=== PATIENT | female | born 1945 | race Caucasian/White ===

== ENCOUNTER 2020-08-30 07:06 | Day surgery (SDC) | payer OTHER, BC ==
[2020-08-25 12:37] LABS: Potassium 3.9 mmol/L (3.5-5.1)
[2020-08-25 12:38] LABS: Absolute Lymphocytes (CBC) 1.6 K/uL (0.7-4.9); Basophils % 0.8 % (0-1.3); Hematocrit 41.1 % (36.0-45.0); Lymphocytes % 24.1 % (15.3-44.8); MPV 8.6 fL (7.6-11.3); RBC Red Blood Cell Count 4.52 M/uL (3.86-4.86)
--- NOTE | 2020-08-25 13:11 | RAD REPORT ---
EXAM DESCRIPTION: RAD - Chest Pa And Lat (2 Views) - 08/25/2020 12:27 pm CLINICAL HISTORY: Pre-op, pending hernia repair COMPARISON: None TECHNIQUE: Frontal and lateral views of the chest were obtained. FINDINGS: The lungs are clear of mass or acute infiltrate. Patient has a mildly prominent interstiti al pattern believed to be chronic. No failure or volume overload. Trachea is midline. Sternotomy wires are in place. Loop recorder overlies the medial upper left abdom en. Heart size is normal and central vasculature is within normal limits. No pleural effusion or p neumothorax seen. No acute bony finding noted. No aortic abnormality. IMPRESSION: No acute cardiopulmonary process.
--- OUTSIDE RECORDS SUMMARY | 2020-08-30 07:10 | XMS REPORT | Clinical Summary ---
:1945 Author Organization [facility] Address [address] [place] [address] Care Team Providers Name Role Phone Cristina Womack MD Primary Care Provider Allergies Active Allergy Reactions Severity Noted Date Comments Adhesive Tape-Silicones 03/15/2018 Use paper tape only Medications Medication Sig Dispensed Refills Start Date End Date Status cholecalciferol, Take 2,000 0 Ac tive vitamin D3, Units by (VITAMIN D3) 2,000 mouth daily. unit capsule capsule warfarin One and one 150 tablet 3 06/25/2019 Active (COUMADIN) 5 MG half tablet tablet daily or as directed by MD office. furosemide (LASIX) TAKE ONE 90 tablet 2 06/23/2020 Active 40 mg tablet TABLET BY MOUTH DAILY pravastatin TAKE 1 TABLET 90 tablet 2 06/23/2020 Act elie (PRAVACHOL) 80 MG BY MOUTH tablet NIGHTLY Klor-Con M20 20 TAKE ONE 90 tablet 2 06/23/2020 Act elie mEq CR tablet TABLET BY MOUTH DAILY sotaloL (BETAPACE) Take 80 mg by 0 Active 80 MG tablet mouth 2 (two) times a day. 1/2 tablet twice daily levothyroxine Take 1/2 tbl 45 tablet 1 07/10/2020 Ac tive (SYNTHROID) 75 mcg daily tabletIndications: Hypothyroidism, unspecified type warfarin Take 1 tablet 30 tablet 1 10/23/2018 Disco ntinued (COUMADIN) 5 MG (5 mg total) 0 ( Med List tablet by mouth Cleanup) daily for 30 days. Take 1 tablet (5mg) by mouth daily for 30 days. sotalol (BETAPACE) Take 1 tablet 180 tablet 3 06/15/201906/14 80 MG tablet (80 mg total) 0 by mouth 2 (two) times a day. Additional Information Patient taking differently: 80 mg oral 2 times daily, 1/2 tab am and 1/2 tab pm, Reported on 09/21/2019 potassium chloride Take 1 tablet 90 tablet 3 06/15/20192019 (K-DUR) 20 MEQ CR (20 mEq tabletIndications: total) by Abnormal stress test, mouth daily. Coronary artery disease involving [place] coronary artery of [place] heart without angina pectoris, SOB (shortness of breath) furosemide (LASIX) 40 Take 1 tablet 90 tablet 3 06/15/201911/2019 mg tabletIndications: (40 mg total) Abnormal stress test, by mouth Coronary artery daily. disease involving [place] coronary artery of [place] heart without angina pectoris, SOB (shortness of breath) pravastatin Take 1 tablet 90 tablet 3 06/15/2019 06/14/2020 Ex pired (PRAVACHOL) 80 MG (80 mg total) tabletIndications: by mouth Abnormal stress test, nightly. Coronary artery disease involving [place] coronary artery of [place] heart without angina pectoris, SOB (shortness of breath) acetaminophen-codeine Take 1 tablet 90 tablet 0 06/16/201907/2019 Discontinued (TYLENOL WITH CODEINE by mouth (Reorder) #3) 300-30 mg per every 6 (six) tabletIndications: hours as chronic pain needed for moderate pain for up to 30 days .chronic pain. albuterol (PROAIR Inhale 1 puff 18 g 1 06/16/2019 019 Discontinued HFA,PROVENTIL every 6 (six) (T herapy HFA,VENTOLIN HFA) 90 hours as completed) mcg/actuation needed for inhalerIndications: shortness of Cough breath. levothyroxine Take 1 tablet 90 tablet 3 06/17/2019 07/10/2020 Discontinued (SYNTHROID, LEVOXYL) (25 mcg 25 mcg total) by tabletIndications: mouth daily. Hypothyroidism, unspecified type acetaminophen-codeine Take 1 tablet 90 tablet 1 09/21/201909/2020 Discontinued (TYLENOL WITH CODEINE by mouth (Reorder) #3) 300-30 mg per every 6 (six) tabletIndications: hours as chronic pain needed for moderate pain for up to 30 days .chronic pain. acetaminophen-codeine Take 1 tablet 90 tablet 1 02/22/202008/2020 (TYLENOL WITH CODEINE by mouth #3) 300-30 mg per every 6 (six) tabletIndications: hours as chronic pain needed for moderate pain for up to 30 days .chronic pain. warfarin (COUMADIN) 5 One and one 200 tablet 3 06/01/20202 02/2020 Discontinued MG tablet half tab (Duplicate daily or as order) directed by MD office amoxicillin-pot Take 1 tablet 20 tablet 0 07/10/2020 0 clavulanate by mouth 2 (AUGMENTIN) 875-125 mg (two) times a per tabletIndications: day for 10 UTI symptoms days. Active Problems Problem Noted Date Umbilical hernia without obstruction and without gangr dion 02/22/2020 Medication management contract agreement 02/22/2020 Gastroesophageal reflux disease 09/21/2019 HLD (hyperlipidemia) 06/16/2019 Hypothyroidism 06/16/2019 Obesity, unspecified obesity severity, unspecified obe sity type 06/16/2019 Osteoarthritis, generalized 06/16/2019 History of cardioversion (06/19/2018) 06/15/2019 Status post placement of implantable loop recorder (MD Lomeli, 06/05/2018) 06/17/2018 Disorder of carotid artery 03/13/2018 Persistent atrial fibrillation 03/13/2018 CAD in [place] artery 02/10/2018 History of coronary artery bypass graft 02/12/2017 Essential hypertension 02/12/2017 Prediabetes 07/10/2016 Overview: Lab Results Component Value Date HGBA1C 5.7 (H) 07/07/2020 Encounters Date Type Specialty Care Team Description 08/23/2020 Telephone Cardiology Ki Tucker MA Cardiac cleara nce 08/21/2020 Telephone Family Medicine Cristina Womack MD 08/21/2020 Telephone Cardiology Jostin Anticoagulation QUENTIN [place] 08/14/2020 Telephone Cardiology Jostin Anticoagulation [place] 07/27/2020 Telephone Cardiology Jostin Anticoagulation [place] 07/13/2020 Telephone Cardiology Frankel, Anticoagulation Bonita, INTEGRATED MARKETING MANAGER 07/10/2020 Orders Only Family Medicine Vu, Hypothyroidi sm, unspecified type (Primary Dx); MD Cristina UTI symptoms 07/07/2020 Lab Lab Vu, Essential hyper tension; MD Cristina Persistent atri al fibrillation; Prediabetes; Hyperlipidemia, unspecified hyperlipidemia type; Hypothyroidism, unspecified type 07/07/2020 Office Visit Family Medicine Vu, Essential hy pertension (Primary Dx); MD Cristina CAD in [place] a rtery; Persistent atri al fibrillation; Disorder of car otid artery (HCC); Hyperlipidemia, unspecified hyperlipidemia type; Prediabetes; Hypothyroidism, unspecified type; Osteoarthritis, generalized; Umbilical herni a without obstruction and without gangrene; Grieving 07/07/2020 Travel 06/29/2020 Telephone Cardiology Frankel, Anticoagulation Bonita, INTEGRATED MARKETING MANAGER 06/26/2020 Travel 06/23/2020 Refill Cardiology Logan Quigley Refill MD Ameena 06/16/2020 Telephone Cardiology Penny Chau Anticoagulatio sam Gilbert, MA 06/01/2020 Orders Only Cardiology Frankel, Bonita, INTEGRATED MARKETING MANAGER 06/01/2020 Telephone Cardiology Frankel, Anticoagulation Bonita, INTEGRATED MARKETING MANAGER 05/18/2020 Telephone Cardiology Frankel, Anticoagulation Bonita, INTEGRATED MARKETING MANAGER 05/02/2020 Telephone Cardiology Frankel, Anticoagulation Bonita, INTEGRATED MARKETING MANAGER 04/26/2020 Hospital Encounter Procedural Camilo, Scientologist Atrial fi brillation, Cardiology MD Kenji PhD unspecified typ e (HCC) 04/17/2020 Telephone Cardiology Frankel, Anticoagulation Bonita, INTEGRATED MARKETING MANAGER 03/27/2020 Hospital Encounter Procedural Camilo, Scientologist Atrial fi brillation, Cardiology MD Kenji PhD unspecified typ e (HCC) 03/27/2020 Telephone Cardiology Frankel, Anticoagulation Bonita, INTEGRATED MARKETING MANAGER 03/10/2020 Telephone Cardiology Frankel, Anticoagulation Bonita, INTEGRATED MARKETING MANAGER 02/26/2020 Hospital Encounter Procedural Camilo, Scientologist Atrial fi brillation, Cardiology MD Kenji PhD unspecified typ e (HCC) 02/24/2020 Telephone Consult Cardiology Camilo, Scientologist Status pos t placement of implantable loop recorder (MDT, 06/05/2018) (Primary Dx); MD Kenji PhD Persistent atri al fibrillation 02/24/2020 Telephone Cardiology Frankel, Anticoagulation Bonita, INTEGRATED MARKETING MANAGER 02/22/2020 Office Visit Family Medicine Vu, Hypothyroidi sm, unspecified type (Primary Dx); MD Cristina Hyperlipidemia, unspecified hyperlipidemia type; Prediabetes; Essential hyper tension; Congestive hear t failure, unspecified HF chronicity, unspecified heart failure type ([facility]); CAD, multiple v essel; Persistent atri al fibrillation; Disorder of car otid artery ([facility]); Gastroesophagea l reflux disease, esophagitis presence not specified; Obesity, unspec ified obesity severity, unspecified obesity type; Umbilical herni a without obstruction and without gangrene; Osteoarthritis, generalized; Medication milla gement contract agreement 02/22/2020 Travel 02/16/2020 Telephone Cardiology Frankel, Anticoagulation Bonita, INTEGRATED MARKETING MANAGER 02/10/2020 Telephone Cardiology Frankel, Anticoagulation Bonita, INTEGRATED MARKETING MANAGER 01/31/2020 Travel 01/27/2020 Telephone Cardiology Lamar Khan MA 01/24/2020 Telephone Cardiology Frankel, Anticoagulation Bonita, INTEGRATED MARKETING MANAGER 01/06/2020 Telephone Cardiology Frankel, Anticoagulation Bonita, INTEGRATED MARKETING MANAGER 12/28/2019 Hospital Encounter Procedural Camilo, Scientologist Atrial fi brillation, Cardiology MD Kenji PhD unspecified typ e ([facility]) 12/24/2019 Telephone Cardiology Frankel, Anticoagulation Bonita, INTEGRATED MARKETING MANAGER 12/09/2019 Telephone Cardiology Frankel, Anticoagulation Bonita, INTEGRATED MARKETING MANAGER 11/26/2019 Telephone Cardiology Frankel, Anticoagulation Bonita, INTEGRATED MARKETING MANAGER 11/11/2019 Telephone Cardiology Frankel, Anticoagulation Bonita, INTEGRATED MARKETING MANAGER 10/29/2019 Hospital Encounter Procedural Camilo, Scientologist Atrial fi brillation, Ulises Phillip MD PhD unspecified typ e ([facility]) 10/28/2019 Hospital Encounter Procedural Camilo, Scientologist AF (atria l fibrillation) Cardiology MD Kenji PhD ([facility]) 10/27/2019 Telephone Cardiology Frankel, Anticoagulation Bonita, INTEGRATED MARKETING MANAGER 10/14/2019 Telephone Cardiology Frankel, Anticoagulation Bonita, INTEGRATED MARKETING MANAGER 09/28/2019 Hospital Encounter Procedural Camilo, Scientologist AF (atria l fibrillation) Ulises Phillip MD PhD ([facility]) 09/27/2019 Telephone Cardiology Frankel, Anticoagulation Bonita, INTEGRATED MARKETING MANAGER 09/24/2019 Orders Only Scott Gonzalez MD PhD 09/21/2019 [facility] Hypothyroidi sm, unspecified type (Primary Dx); MD Cristina Hyperlipidemia, unspecified hyperlipidemia type; Prediabetes; Osteoarthritis, generalized; Essential hyper tension; CAD in [place] a rtery; Persistent atri al fibrillation 09/21/2019 Office Visit Cardiology Scott Page Persistent atri al fibrillation (Primary Dx); MD Kenji PhD Status post [place] cement of implantable loop recorder (MDT, 06/05/2018); History of card ioversion (06/19/2018) 09/13/2019 Telephone Cardiology Jareth Frankel INTEGRATED MARKETING MANAGER 08/30/2019 Hospital Encounter Procedural Scott Page Atrial fi brillation, Cardiology MD Kenji PhD unspecified typ e (HCC) after 08/30/2019 Surgical History Surgery Date Site/Laterality Comments CARDIAC ELECTROPHYSIOLOGY 03/18/2018 N/A Proced ure: Ep PROCEDURE cardioversion w felipa; Surgeon: Paco Doran MD; L ocation: [facility] [employer] Location; Servi ce: Cardiovascular; Laterality: N/A; TOTAL HIP ARTHROPLASTY 10/13/2004 - Bilateral 10/12/2005 CARDIAC ELECTROPHYSIOLOGY 06/05/2018 N/A Proced ure: Ep loop PROCEDURE recorder inserti on; Surgeon: Scott Page MD PhD; Locatio n: [facility] [employer] Location; Servi ce: Cardiovascular; Laterality: N/A; loop implant Medical devices from this surgery are in the Implants section . CARDIOVERSION CARDIAC ELECTROPHYSIOLOGY 06/19/2018 N/A Proced ure: Ep PROCEDURE cardioversion; Surgeon: Odin Watson PhD; Location: [facility] [employer] [facility] Loc ation; Service: Cardiov ascular; Laterality: N/A ; CARDIAC CATHETERIZATION 07/29/2018 N/A Procedur e: Cv left heart cath; Surgeon: Logan Quigley MD; Lo cation: [facility] [employer] Location; Servi ce: Cardiology; Lat erality: N/A; left heart cath poss pci CARDIAC CATHETERIZATION 07/29/2018 N/A Procedur e: Cv left heart cath w lv gram c ors; Surgeon: Logan Quigley MD; Location: [facility] [employer] Location; Servi ce: Cardiology; Lat erality: N/A; CARDIAC CATHETERIZATION 08/13/2018 N/A Procedur e: Cv left heart cath; Surgeon: Logan Quigley MD; Lo cation: [facility] [employer] Location; Servi ce: Cardiology; Lat erality: N/A; Medical devices from this surgery are in the Implants section . CARDIAC CATHETERIZATION 08/13/2018 N/A Procedur e: Cv intracoronary st ent placement w travis oplasty single major art dylan or branch; Surgeon : Logan Quigley MD; Lo cation: [facility] [employer] [facility] [facility]; Servi ce: Cardiology; Lat erality: N/A; RCA-SHEET MANAGER Medical devices from this surgery are in the Implants section . CARDIAC CATHETERIZATION 08/13/2018 N/A Procedur e: Cv Cath Aborted Pci Proc edure; Surgeon: Logan Quigley MD; Location: [facility] [employer] Location; Servi ce: Cardiology; Lat erality: N/A; Medical devices from this surgery are in the Implants section . CARDIAC CATHETERIZATION 10/22/2018 N/A Procedur e: Pci percutaneous cardiac angioplasty PCI TO RCA SHEET MANAGER; Surgeon: Logan Quigley MD; Location: [facility] [employer] [facility] [facility]; Service: Cardiology; Laterality: N/A; PCI TO RCA SHEET MANAGER 2 SATYA Medical devices from this surgery are in the Implants section. CORONARY ARTERY BYPASS GRAFT 10/13/2004 - 10/12/2005 Medical History Medical History Date Comments Coronary artery disease Peripheral vascular disease (HCC) Hypertension Hyperlipidemia Arrhythmia Afib Family History Medical History Relation Name Comments No Known Problems Father No Known Problems Mother Relation Name Status Comments Father Mother Social History Tobacco Use Types Packs/Day Years Used Date Former Smoker Cigarettes Smokeless Tobacco: Never Used Tobacco Cessation: Counseling Given: Yes Alcohol Use Drinks/Week oz/Week Comments No Sex Assigned at Date Recorded Not on file Obstetrics History Grav Para Term Pre Abrt (TAB) (SAB) (Ect) Mult Lvng Comments 2 2 Date Outcome GA Total Labor/2nd/3rd Weight Sex Delivery Anes PTL Elissa A 1 A5 Name Clin Labor Para Para Last Filed Vital Signs Vital Sign Reading Time Taken Comments Blood Pressure 173/117 07/07/2020 11:51 AM CDT Pulse 63 07/07/2020 11:51 AM CDT Temperature 36.7 C (98 F) 07/07/2020 11:51 AM CDT Respiratory Rate 16 07/07/2020 11:51 AM CDT Oxygen Saturation 95% 07/07/2020 11:51 AM CDT Inhaled Oxygen Concentration - - Weight 74.6 kg (164 lb 6.4 oz) 07/07/2020 11:51 AM CDT Height 152.4 cm (5') 07/07/2020 11:51 AM CDT Body Mass Index 32.11 07/07/2020 11:51 AM CDT Plan of Treatment Date Type Specialty Care Team Description 01/03/2021 Office Visit Family Medicine Cristina Womack MD [address] [facility] [address] [place], [place] [address] Health Maintenance Due Date Last Done Comments 65+ PNEUMOCOCCAL VACCINE (1 of 1 06/16/2024 Postponed from 2009 - PPSV23) (Patient Refused ) INFLUENZA VACCINE 06/16/2024 Postponed from 05/13/2020 (Patient Refused ) SHINGLES VACCINES (#1) 06/16/2024 Postponed from 1994 (Patient Refused ) COLONOSCOPY SCREENING Discontinued DXA SCAN Discontinued Implants Implanted Type Area Gate Services Supervisor Device Shelf Model / Identifier Expiration Serial / Date Lot System Reveal Linq W/Monitors - [id number] Cardiac N/A: MEDTRON IC 03/09/2019 [id number] / Implanted: 06/05/2018 at [facility] (Quantity not on file) Pac emakers and N/A CARDIAC RHYTHM / Related Products DISEASE MGMT [id number] Microcatheter Deirdre Corsair 6f X 135 Cm - [id number] Cardiovascul ar N/A: [facility] [id number] / Implanted: 08/13/2018 at [facility] (Quantity not on file) Implants N/A / Device Stingray Lp Freelance Digital Project Manager 3.2fr 135cm - [id number] Cardiovascular N/A: [facility] [id number] / Implanted: 08/13/2018 at [facility] (Quantity not on file) Imp lants N/A INTERVENTIONAL / CARDIOLOGY Device Vasclr Clsr Vasoactive Intstnl Peptd 6fr Angio- Seal - [id number] Cardiovascular N/A: 06/12/2019 [id number] / Implanted: 08/13/2018 at [facility] (Quantity not on file) Implants N/A / [id number] Device Vasclr Clsr Vasoactive Intstnl Peptd 8fr Angio- Seal - [id number] Cardiovascular N/A: 04/11/2019 [id number] / Implanted: 08/13/2018 at [facility] (Quantity not on file) Implants N/A / [id number] Microcatheter Deirdre Corsair 6f X 135 Cm - [id number] Cardiovascul ar N/A: [facility] [id number] / Implanted: 10/22/2018 at [facility] (Quantity not on file) Implants N/A / Stent Coronary Syst Synergy (Mr) 3.00mm X 38mm - [id number] Coronary Stents N/A: [facility] 07/26/2020 [id number] / Implanted: 10/22/2018 at [facility] (Quantity not on file) N/A INTERVENTIONAL / CARDIOLOGY [id number] Stent Catheter Synergy (Otw) 3.00mm X 38mm - [id number] Coronary Stents N/A: [facility] [id number] / Implanted: 10/22/2018 at [facility] (Quantity not on file) N/A INTERVENTIONAL / CARDIOLOGY System Clsr Sut Meditd 6fr Perclose Proglide - [id number] Surgic al N/A: [facility] 07/12/2020 [id number] / Implanted: 10/22/2018 at [facility] (Quantity not on file) Imp lants; N/A DEVICES / Expanders; [id number] Extenders; Surgical Wires Procedures Procedure Name Priority Date/Time Associated Diagnosis Comme nts PROTHROMBIN TIME WITH Routine 08/14/2020 Result s for this INR procedure are i n the results section. PROTHROMBIN TIME WITH Routine 07/27/2020 Result s for this INR procedure are i n the results section. PROTHROMBIN TIME WITH Routine 07/13/2020 Result s for this INR procedure are i n the results section. MICROSCOPIC Routine 07/07/2020 12:41 Results for this EXAMINATION PM CDT procedure are i n the results section. URINALYSIS, AUTOMATED Routine 07/07/2020 12:41 Essential hyper tension Results for this WITH MICROSCOPY PM CDT procedure ar e in the results section. THYROID STIMULATING Routine 07/07/2020 12:41 Hypothyroidism, R esults for this HORMONE PM CDT unspecified type procedure a re in the results section. T4, FREE Routine 07/07/2020 12:41 Hypothyroidism, Results for this PM CDT unspecified type procedure a re in the results section. MICROALBUMIN / Routine 07/07/2020 12:41 Essential hypertension Results for this CREATININE URINE PM CDT procedure a re in RATIO the results section. LIPID PANEL Routine 07/07/2020 12:41 Hyperlipidemia, Results for this PM CDT unspecified procedure are i n hyperlipidemia type the resu lts section. HEPATITIS C ANTIBODY Routine 07/07/2020 12:41 Hyperlipidemia, Results for this PM CDT unspecified procedure are i n hyperlipidemia type the resu lts section. HEPATIC FUNCTION Routine 07/07/2020 12:41 Hyperlipidemia, Resu lts for this PANEL PM CDT unspecified procedure are i n hyperlipidemia type the resu lts section. HEMOGLOBIN A1C Routine 07/07/2020 12:41 Prediabetes Results f or this PM CDT procedure are i n the results section. CBC WITH PLATELET AND Routine 07/07/2020 12:41 Persistent atri al Results for this DIFFERENTIAL PM CDT fibrillation procedure are i n the results section. BASIC METABOLIC PANEL Routine 07/07/2020 12:41 Essential hyper tension Results for this PM CDT procedure are i n the results section. PROTHROMBIN TIME WITH Routine 06/29/2020 Result s for this INR procedure are i n the results section. PROTHROMBIN TIME WITH Routine 06/16/2020 Result s for this INR procedure are i n the results section. PROTHROMBIN TIME WITH Routine 06/01/2020 Result s for this INR procedure are i n the results section. PROTHROMBIN TIME WITH Routine 05/18/2020 Result s for this INR procedure are i n the results section. PROTHROMBIN TIME WITH Routine 05/01/2020 Result s for this INR procedure are i n the results section. PROTHROMBIN TIME WITH Routine 04/17/2020 Result s for this INR procedure are i n the results section. PROTHROMBIN TIME WITH Routine 03/27/2020 Result s for this INR procedure are i n the results section. PROTHROMBIN TIME WITH Routine 03/10/2020 Result s for this INR procedure are i n the results section. PROTHROMBIN TIME WITH Routine 02/24/2020 Result s for this INR procedure are i n the results section. PROTHROMBIN TIME WITH Routine 02/16/2020 Result s for this INR procedure are i n the results section. PROTHROMBIN TIME WITH Routine 02/10/2020 Result s for this INR procedure are i n the results section. PROTHROMBIN TIME WITH Routine 01/24/2020 Result s for this INR procedure are i n the results section. PROTHROMBIN TIME WITH Routine 01/06/2020 Result s for this INR procedure are i n the results section. PROTHROMBIN TIME WITH Routine 12/24/2019 Result s for this INR procedure are i n the results section. PROTHROMBIN TIME WITH Routine 12/09/2019 Result s for this INR procedure are i n the results section. PROTHROMBIN TIME WITH Routine 12/09/2019 Result s for this INR procedure are i n the results section. PROTHROMBIN TIME WITH Routine 11/26/2019 Result s for this INR procedure are i n the results section. PROTHROMBIN TIME WITH Routine 11/11/2019 Result s for this INR procedure are i n the results section. PROTHROMBIN TIME WITH Routine 10/27/2019 Result s for this INR procedure are i n the results section. PROTHROMBIN TIME WITH Routine 09/27/2019 Result s for this INR procedure are i n the results section. ECG 12-LEAD Routine 09/21/2019 2:03 Persistent atrial Result s for this PM DIE SIZER fibrillation procedure are in Status post placement the re sults of implantable loop section. recorder (MDT, 06/05/2018) History of cardioversion (06/19/2018) CV PACEMAKER DEFIB Routine 09/21/2019 ILR INTERROGATION PROTHROMBIN TIME WITH Routine 09/13/2019 Result s for this INR procedure are i n the results section. after 08/30/2019 Results Prothrombin time with INR (08/14/2020)Only the most recent of24 resultswithin the time period is included. Pathologist Sig nature INR 3.10 [facility] Specimen Blood Performing Organization Address City/State/ZIP Code Phon e Number [facility] Microscopic Examination (07/07/2020 12:41 PM CDT) Pathologist Sig nature WBC, UA 11-30 (A) 0 - 5 /hpf [facility] RBC, UA 3-10 (A) 0 - 2 /hpf [facility] Epithelial cells (non >10 (A) 0 - 10 /hpf [facility] renal) Mucus, UA Present Not Estab. [facility] Bacteria, UA Many (A) None seen/Few [facility] Specimen Narrative Performed At Performed at: 01 - [facility] [address] [place], [place] [id number] 143 Contracting Officer: Ja Ramírez MD, Phone: [phone] Performing Organization Address [facility] Phon e Number [facility] Hepatitis C antibody (07/07/2020 12:41 PM CDT) [facility] Hepatitis C Ab <0.1 0.0 - 0.9 s/co [facility] Comment: ratio Neg ative: < 0.8 Indetermina te: 0.8 - 0.9 Pos itive: > 0.9 The CDC recommends that a positive HCV antibody resul t be followed up with a HCV Nucleic Acid Amplification test (669705). Specimen Blood Narrative Performed At Performed at: [address] [place] [address] [facility] [address] [place] [address] [id number] Contracting Officer: Ja Ramírez MD, Phone: [phone] Performing Organization Address [facility] Phon e Number [facility] Microalbumin / creatinine urine ratio (07/07/2020 12:41 PM CDT) [facility] Creatinine, urine, 198.5 Not Estab. [facility] random mg/dL Albumin, urine 23.4 Not Estab. [facility] ug/mL Microalbumin/creati 12 0 - 29 mg/g [facility] nine ratio Comment: creat Normal: 0 - 29 Moderately increased : 30 - 300 Severely increased: >300 Please note reference interval change Specimen Blood Narrative Performed At Performed at: [address] [place] [address] [facility] [address] [place] [address] [id number] Contracting Officer: Ja Ramírez MD, Phone: [phone] Performing Organization Address [facility] Phon e Number [facility] Urinalysis, automated with microscopy (07/07/2020 12:41 PM CDT) [facility] Specific gravity, 1.024 1.005 - 1.030 [facility] urine pH, urine 5.5 5.0 - 7.5 [facility] Color, UA Yellow Yellow [facility] Appearance Cloudy (A) Clear [facility] WBC esterase, urine 2+ (A) Negative [facility] Protein, UA Trace Negative/Trace [facility] Glucose, urine Negative Negative [facility] Ketones, UA Negative Negative [facility] Occult blood, urine Trace (A) Negative [facility] Bilirubin, UA Negative Negative [facility] Urobilinogen, UA 0.2 0.2 - 1.0 mg/dL [facility] Nitrite, UA Negative Negative [facility] Microscopic See below:Comment: [facility] examination Microscopic was indicated and was performed. Specimen Blood Narrative Performed At Performed at: - [facility] [address] [place] [address] [id number] Contracting Officer: Ja Ramírez MD, Phone: [phone] Performing Organization Address City/State/ZIP Code Phon e Number [facility] CBC with platelet and differential (07/07/2020 12:41 PM CDT) Pathologist Sig nature WBC 6.1 3.4 - 10.8 x10E3/uL [facility] RBC 4.19 3.77 - 5.28 x10E6/uL [facility] HGB 13.5 11.1 - 15.9 g/dL [facility] HCT 39.1 34.0 - 46.6 % [facility] MCV 93 79 - 97 fL [facility] MCH 32.2 26.6 - 33.0 pg [facility] MCHC 34.5 31.5 - 35.7 g/dL [facility] RDW 12.3 11.7 - 15.4 % [facility] Platelet count 286 150 - 450 x10E3/uL [facility] Neutrophils 65 Not Estab. % [facility] Lymphocytes 22 Not Estab. % [facility] Monocytes 9 Not Estab. % [facility] Eosinophils 3 Not Estab. % [facility] Basophils 1 Not Estab. % [facility] Neutrophils, absolute 3.9 1.4 - 7.0 x10E3/uL [facility] Lymphocytes, absolute 1.4 0.7 - 3.1 x10E3/uL [facility] Monocytes, absolute 0.6 0.1 - 0.9 x10E3/uL [facility] Eosinophils, absolute 0.2 0.0 - 0.4 x10E3/uL [facility] Basophils, absolute 0.0 0.0 - 0.2 x10E3/uL [facility] Immature granulocytes 0 Not Estab. % [facility] Immature grans (abs) 0.0 0.0 - 0.1 x10E3/uL [facility] Specimen Blood Narrative Performed At Performed at: - [facility] [place], [place] [address] 091 Contracting Officer: Ja Ramírez MD, Phone: [phone] Performing Organization Address [facility] Phon e Number [facility] Thyroid stimulating hormone (07/07/2020 12:41 PM CDT) Pathologist Sig nature TSH 5.930 (H) 0.450 - 4.500 uIU/mL [facility] Specimen Blood Narrative Performed At Performed at: [address] [place] [address] [id number] Contracting Officer: Ja Ramírez MD, Phone: [phone] Performing Organization Address [facility] Phon e Number [facility] T4, free (07/07/2020 12:41 PM CDT) Pathologist Sig nature T4, free 1.22 0.82 - 1.77 ng/dL [facility] Specimen Blood Narrative Performed At Performed at: [address] [place] [address] [id number] Contracting Officer: Ja Ramírez MD, Phone: [phone] Performing Organization Address [facility] Phon e Number [facility] Hemoglobin A1c (07/07/2020 12:41 PM CDT) Pathologist Sig [facility] Hemoglobin A1C 5.7 (H) 4.8 - 5.6 % [facility] Comment: Prediabetes: 5.7 - 6.4 Diabetes: >6.4 Glycemic control for adults with diabetes : <7.0 Specimen Blood Narrative Performed At Performed at: [address] [place] [address] [id number] Contracting Officer: Ja Ramírez MD, Phone: [phone] Performing Organization Address [facility] Phon e Number [facility] Hepatic function panel (07/07/2020 12:41 PM CDT) Pathologist Sig nature Protein 7.3 6.0 - 8.5 g/dL [facility] Albumin, S 4.5 3.7 - 4.7 g/dL [facility] Total bilirubin 0.6 0.0 - 1.2 mg/dL [facility] Bilirubin direct 0.12 0.00 - 0.40 mg/dL [facility] Alkaline phosphatase 82 39 - 117 IU/L [facility] AST 17 0 - 40 IU/L [facility] ALT 12 0 - 32 IU/L [facility] Specimen Blood Narrative Performed At Performed at: [facility] [address] [place] [address] [id number] Contracting Officer: Ja Ramírez MD, Phone: [phone] Performing Organization Address [facility] Phon e Number [facility] Lipid panel (07/07/2020 12:41 PM CDT) Pathologist Sig nature Cholesterol 195 100 - 199 mg/dL [facility] Triglycerides 93 0 - 149 mg/dL [facility] HDL cholesterol 64 >39 mg/dL [facility] VLDL cholesterol marlene 17 5 - 40 mg/dL [facility] LDL Chol Calc (NIH) 114 (H) 0 - 99 mg/dL [facility] Non-HDL cholesterol 131 (H) 0 - 129 mg/dL [facility] Specimen Blood Narrative Performed At Performed at: [address] [id number] Contracting Officer: Ja Ramírez MD, Phone: [phone] Performing Organization Address [facility] Phon e Number [facility] Basic metabolic panel (07/07/2020 12:41 PM CDT) Pathologist Sig nature Glucose 98 65 - 99 mg/dL [facility] BUN 12 8 - 27 mg/dL [facility] Creatinine 0.65 0.57 - 1.00 mg/dL [facility] EGFR Non-Afr. Yemeni 87 >59 mL/min/1.73 [facility] EGFR 100 >59 mL/min/1.73 [facility] BUN/creatinine ratio 18 12 - 28 [facility] Sodium 138 134 - 144 mmol/L [facility] Potassium 4.4 3.5 - 5.2 mmol/L [facility] Chloride 102 96 - 106 mmol/L [facility] CO2 23 20 - 29 mmol/L [facility] Calcium 9.4 8.7 - 10.3 mg/dL [facility] Specimen Blood Narrative Performed At Performed at: [address] [place] [address] [id number] [phone] Contracting Officer: Ja Ramírez MD, Phone: [phone] Performing Organization Address [facility] Phon e Number [facility] ECG 12 lead (09/21/2019 2:03 PM DIE SIZER) Pathologist Sig nature Ventricular rate 54 [facility] Atrial rate 54 [facility] SD interval 154 [facility] QRSD interval 82 [facility] QT interval 446 [facility] QTC interval 422 [facility] P axis 1 37 [facility] QRS axis 1 -17 [facility] T wave axis 46 [facility] EKG impression Sinus bradycardia-Low [facility] voltage QRS-Borderline ECG-In automated comparison with ECG of 01-JUL-2019 11:01,-No significant change was found- Specimen Narrative Performed At This result has an attachment that is no t available. Performing Organization Address City/State/ZIP Code Phon e Number [facility] MUSE [address] [place] [address] CV pacemaker defib or ilr interrogation (09/21/2019) Narrative Performed At This result has an attachment that is no t available. after 08/30/2019 Insurance Payer Benefit Plan / Subscriber ID Effective Dates Phone Addre ss Type Group MEDICARE MEDICARE PART A [id number] 2009-Present [facility] [place] [place] AND B BCBS [employer] [id number] 2016-Present PPO Advance Directives For more information, please contact: [phone] Type Date Recorded Patient Senior Payroll Manager Explanati on Advance Directives, Living Will and Medical Power of Manager Commodities
--- OUTSIDE RECORDS SUMMARY | 2020-08-30 07:11 | XMS REPORT | Continuity of Care Document ---
:1945 Author Organization [facility] t Address [address] [place] [address] Dr. [address]. [address] [place] [address] Care Team Providers Name Role Phone Vu COLLADO Primary Care Physician Caitlin SCHULTZ Attending Clinician Unavailable Vu COLLADO Attending Clinician Jostin SAAVEDRA Attending Clinician Unavailable Dann COLLADO, R. Attending Clinician Isac SCHULTZ, A Attending Clinician Unavailable Camilo COLLADO PhD, S. Attending Clinician Bill SCHULTZ Attending Clinician Unavailable Payers Payer Name Policy Type Policy Effective Date Expiration Date Sour ce Number MEDICAREMEDICARE PART [id number] 2009 Morris Gilbert AND 00:00:00 [employer] [id number] 2008- [place]UE [id number] 2016 [facility]/ 4 00:00:00 Met priest /2015-PresentPPO Problems Condition Condition Condition Status Onset Resolution Last Treating Co mments Source Name Details Category Date Date Treatment Clinician Date Umbilical Umbilical Disease Active Monica ston hernia hernia 02-21 [facility] without without 00:00: st obstructio obstructio 00 n and n and without without gangrene gangrene Medication Medication Disease Active H [facility] management management 02-21 [facility] contract contract 00:00: st agreement agreement 00 Gastroesop Gastroesop Disease Active 2018-10 [facility] hageal hageal 2-10 [facility] reflux reflux 00:00: st disease disease 00 HLD HLD Disease Active [place] (hyperlipi (hyperlipi 06-16 Me thodi demia) demia) 00:00: st 00 Hypothyroi Hypothyroi Disease Active H evanlila dism dism 06-16 Methodi 00:00: st 00 Obesity, Obesity, Disease Active [place] unspecifie unspecifie 06-16 Me thodi d obesity d obesity 00:00: st severity, severity, 00 unspecifie unspecifie d obesity d obesity type type Osteoarthr Osteoarthr Disease Active H [facility] itis, itis, 06-16 [facility] generalize generalize 00:00: st d d 00 History of History of Disease Active H [facility] cardiovers cardiovers 06-15 Me thodi ion ion 00:00: st (06/19/2018) (06/19/2018) 00 Status Status Disease Active [place] post post 06-17 [facility] placement placement 00:00: st of of 00 implantabl implantabl e loop e loop recorder recorder (MDT, (MDT, 06/05/2018) 06/05/2018) Disorder Disorder Disease Active [place] of carotid of carotid 6- Me thodi artery artery 00:00: st 00 Persistent Persistent Disease Active [facility] atrial atrial 6 [facility] fibrillati fibrillati 00:00: st on on 00 CAD in CAD in Disease Active [place] wampanoag wampanoag 02-10 [facility] artery artery 00:00: st 00 History of History of Disease Active H [facility] coronary coronary 02-12 Method i artery artery 00:00: st bypass bypass 00 graft graft Essential Essential Disease Active Monica ston hypertensi hypertensi 5-03 Me thodi on on 00:00: st 00 Prediabete Prediabete Disease Active Overview : [place] ghanshyam s 07-10 Formattin Methodi 00:00: g of this st 00 note might be different from the original. Lab Results Component Value Date HGBA1C 5.7 (H) 0 Allergies, Adverse Reactions, Alerts Allergy Allergy Status Severity Reaction(s) Onset Inactive Treating Comm ents Source Name Type Date Date Clinician Adhesive Propensi Active Use paper Monica ston Tape-Malina ty to 03-15 tape only Meth[facility] di icones adverse 00:00: st reaction 00 s to drug Family History Family Member Diagnosis Comments Start Date Stop Date Source Natural father No Known Problems Monica sharp Roman Catholic Natural mother No Known Problems Monica sharp [employer] Social History Social Habit Start Date Stop Date Quantity Comments Source History of Cigarette Smoker [place] [facility] tobacco use Sex Assigned At [facility] ethodist Tobacco use and 2020-07-07 2020-07-07 Never used [facility] ethodist exposure 00:00:00 00:00:00 Alcohol intake 2020-07-07 2020-07-07 Current [facility] thodist 00:00:00 00:00:00 non-drinker of alcohol (finding) Smoking Status Start Date Stop Date Source Former smoker 2020-07-07 00:00:00 2020-07-07 00:00:00 [place] [facility] Medications Ordered Filled Start Stop Current Ordering Indication Dosage Frequency Signature Comments Components Source Medication Medication Date Date Medication? Clinician (SIG) Name Name levothyroxi Yes Hypothyroid Take 1/2 [place] ne 07-10 ism, tbl daily [facility]i (SYNTHROID) 00:00: unspecified st 75 mcg 00 type tablet amoxicillin 2020- No UTI 1{tbl} Q.5D Take 1 H [place] -pot 07-10 10-08 symptoms tablet by Metho di clavulanate 00:00: 23:[address] (AUGMENTIN) 00 :00 (two) 875-125 mg times a per tablet day for 10 days. sotaloL Yes 80mg Q.5D Take 80 mg [place] (BETAPACE) 07-07 by mouth 2 Met hodi 80 MG 11:58: (two) st tablet 09 times a day. 1/2 tablet twice daily cholecalcif 2019- Yes 2000U QD Take 2,000 Marx sonali, 9-25 Units by [facility] vitamin D3, 11:57: mouth st (VITAMIN 16 daily. D3) 2,000 unit capsule capsule furosemide Yes TAKE ONE Monica ston (LASIX) 40 9- TABLET BY Meth donta mg tablet 00:00: MOUTH st 00 DAILY pravastatin Yes TAKE 1 [place] (PRAVACHOL) 9- TABLET BY [facility] [place] 80 MG 00:00: MOUTH st tablet 00 NIGHTLY Klor-Con Yes TAKE ONE [place] M20 20 mEq 9-11 TABLET BY Meth donta CR tablet 00:00: MOUTH st 00 DAILY warfarin 2020- No One and [place] (COUMADIN) 8-20 09-25 one half Meth donta 5 MG tablet 00:00: 00:[address] 00 :00 or as directed by MD office acetaminoph 2019- No chronic 1{tbl} Q6H Take 1 [facility] en-codeine 5-12 06-11 pain tablet by [facility] [place] (TYLENOL 00:00: 23:[address] WITH 00 :00 every 6 CODEINE #3) (six) 300-30 mg hours as per tablet needed for moderate pain for up to 30 days .chronic pain. acetaminoph 2018-10- No chronic 1{tbl} Q6H Take 1 [facility] en-codeine 2-10 05-12 pain tablet by [facility] [place] (TYLENOL 00:00: 00:[address] WITH 00 :00 every 6 CODEINE #3) (six) 300-30 mg hours as per tablet needed for moderate pain for up to 30 days .chronic pain. warfarin Yes One and [place] (COUMADIN) 9-13 one half Metho di 5 MG tablet 00:00: tablet st 00 daily or as directed by MD office. levothyroxi 2019- No Hypothyroid 25ug QD Take 1 [place] ne 06-17 09-28 ism, tablet (25 [facility] (SYNTHROID, 00:00: 00:00 unspecified mcg total) st LEVOXYL) 25 00 :00 type by mouth mcg tablet daily. acetaminoph 2018- No chronic 1{tbl} Q6H Take 1 [facility] en-codeine 06-16 12-10 pain tablet by [facility] [place] (TYLENOL 00:00: 00:[address] WITH 00 :00 every 6 CODEINE #3) (six) 300-30 mg hours as per tablet needed for moderate pain for up to 30 days .chronic pain. albuterol 2018- No Cough 1{puff} Q6H Inhale 1 [facility] (PROAIR 06-16 12-10 puff every Metho di HFA,PROVENT 00:00: 00:00 6 (six) st [place] 00 :00 hours as HFA,VENTOLI needed for N HFA) 90 shortness mcg/actuati of breath. on inhaler sotalol No 80mg Q.5D Take 1 Marx (BETAPACE) 06-15 tablet (80 Me thodi 80 MG 00:00: 23:59 mg total) st tablet 00 :00 by mouth 2 (two) times a day. potassium No SOB 20meq QD Take 1 [place] chloride 06-15 (shortness tablet (20 [facility] (K-DUR) 20 00:00: 23:59 of breath) mEq total) st MEQ CR 00 :00 by mouth tablet daily. furosemide No SOB 40mg QD Take 1 [place] (LASIX) 40 06-15 (shortness tablet (40 [facility] mg tablet 00:00: 23:59 of breath) mg total) st 00 :00 by mouth daily. pravastatin No SOB 80mg QD Take 1 Monica ston (PRAVACHOL) 06-15 (shortness tablet (80 Methodi 80 MG 00:00: 23:59 of breath) mg total) st tablet 00 :00 by mouth nightly. warfarin No 5mg QD Take 1 [place] (COUMADIN) 10-2312 tablet (5 Met hodi 5 MG tablet 00:00: 00:00 mg total) st 00 :00 by mouth daily for 30 days. Take 1 tablet (5mg) by mouth daily for 30 days. Vital Signs Vital Name Observation Time Observation Value Comments Source Systolic blood 2020-07-07 11:51:00 173 mm[Hg] [place] [facility] pressure Diastolic blood 2020-07-07 11:51:00 117 mm[Hg] [place] [facility] pressure Heart rate 2020-07-07 11:51:00 63 /min [place] [facility] Body temperature 2020-07-07 11:51:00 36.67 Arm[place] [facility] Respiratory rate 2020-07-07 11:51:00 16 /min [place] [facility] Body height 2020-07-07 11:51:00 152.4 cm [place] [facility] Body weight 2020-07-07 11:51:00 74.571 kg Francisco J Rader BMI 2020-07-07 11:51:00 32.11 kg/m2 Francisco J Rader Oxygen saturation in 2020-07-07 11:51:00 95 /min Francisco J Rader Arterial blood by Pulse oximetry Procedures Procedure Date / Time Performed Performing Clinician Karli cardona PROTHROMBIN TIME WITH INR 2020-08-14 00:00:00 Provider, Gasper Rodriguezist PROTHROMBIN TIME WITH INR 2020-07-27 00:00:00 Provider, Gasper Rodriguezist PROTHROMBIN TIME WITH INR 2020-07-13 00:00:00 Provider, Gasper Guo BASIC METABOLIC PANEL 2020-07-07 12:41:00 Masha Womack CBC WITH PLATELET AND 2020-07-07 12:41:00 Masha Womack DIFFERENTIAL HEMOGLOBIN A1C 2020-07-07 12:41:00 Masha Womack HEPATIC FUNCTION PANEL 2020-07-07 12:41:00 Masha Womack on [employer] HEPATITIS C ANTIBODY 2020-07-07 12:41:00 Masha Womack LIPID PANEL 2020-07-07 12:41:00 Masha Womack MICROALBUMIN / CREATININE 2020-07-07 12:41:00 Masha Womack URINE RATIO T4, FREE 2020-07-07 12:41:00 Masha Womack THYROID STIMULATING 2020-07-07 12:41:00 Masha Womack HORMONE URINALYSIS, AUTOMATED 2020-07-07 12:41:00 Masha Womack WITH MICROSCOPY MICROSCOPIC EXAMINATION 2020-07-07 12:41:00 Masha Womack PROTHROMBIN TIME WITH INR 2020-06-29 00:00:00 Provider, Gasper Guo PROTHROMBIN TIME WITH INR 2020-06-16 00:00:00 Provider, Gasper Guo PROTHROMBIN TIME WITH INR 2020-06-01 00:00:00 Provider, Gasper Guo PROTHROMBIN TIME WITH INR 2020-05-18 00:00:00 Provider, Gasper Rodriguezist PROTHROMBIN TIME WITH INR 2020-05-01 00:00:00 Provider, Historic al Marx [employer] PROTHROMBIN TIME WITH INR 2020-04-17 00:00:00 Provider, Historic al Marx [employer] [facility] PROTHROMBIN TIME WITH INR 2020-03-27 00:00:00 Provider, Historic al Francisco J [employer] PROTHROMBIN TIME WITH INR 2020-03-10 00:00:00 Provider, Historic al Marx [employer] PROTHROMBIN TIME WITH INR 2020-02-24 00:00:00 Provider, Gonzalesic al Francisco J [employer] [facility] PROTHROMBIN TIME WITH INR 2020-02-16 00:00:00 Provider, Historic al Francisco J [employer] PROTHROMBIN TIME WITH INR 2020-02-10 00:00:00 Provider, Historic al Marx [employer] PROTHROMBIN TIME WITH INR 2020-01-24 00:00:00 Provider, Gonzalesic al Francisco J [employer] PROTHROMBIN TIME WITH INR 2020-01-06 00:00:00 Provider, Historic al Francisco J [employer] PROTHROMBIN TIME WITH INR 2019-12-24 00:00:00 Provider, Gonzalesic al Francisco J [employer] [facility] PROTHROMBIN TIME WITH INR 2019-12-09 00:00:00 Provider, Gasper Pham [employer] PROTHROMBIN TIME WITH INR 2019-11-26 00:00:00 Provider, Gonzalesic al Marx [employer] PROTHROMBIN TIME WITH INR 2019-11-11 00:00:00 Provider, Gasper al Francisco J [employer] PROTHROMBIN TIME WITH INR 2019-10-27 00:00:00 Provider, Gasper al Francisco J [employer] PROTHROMBIN TIME WITH INR 2019-09-27 00:00:00 Provider, Gasper Pham [employer] [facility] ECG 12-LEAD 2019-09-21 14:03:36 Sarah Page Meth odist CV PACEMAKER DEFIB ILR 2019-09-21 00:00:00 Sarah Page on [employer] INTERROGATION PROTHROMBIN TIME WITH INR 2019-09-13 00:00:00 Provider, Gasper Guo Plan of Care Planned Activity Planned Date Details Comments Source Future Scheduled 2024-06-16 65+ PNEUMOCOCCAL Postponed from [facility] 00:00:00 VACCINE (1 - 2009 [facility] PPSV23) [code = 65+ (Patient Refused) PNEUMOCOCCAL VACCINE (1 - PPSV23)] Future Scheduled 2024-06-16 INFLUENZA VACCINE Postponed from [place] [facility] 00:00:00 [code = INFLUENZA 05/13/2020 [facility] VACCINE] (Patient Refused) Future Scheduled 2024-06-16 SHINGLES VACCINES Postponed from [place] [facility] 00:00:00 (#1) [code = 1994 [facility] SHINGLES VACCINES (Patient Refused) (#1)] Encounters Start End Encounter Admission Attending Care Care Encounter Source Date/Time Date/Time Type Type Clinicians Facility Department ID 2020-07-07 2020-07-07 Outpatient PATRICIA, [facility] [id number] [place] 00:00:00 00:00:00 MASHA [address] 2020-07-07 2020-07-07 Outpatient PATRICIA, [facility] [id number] [place] 00:00:00 00:00:00 MASHA [address] 2020-04-26 2020-04-26 Outpatient CAMILO, [facility] [id number] [place] 00:00:00 00:00:[address] 2020-03-27 2020-03-27 Outpatient CAMILO, [facility] [id number] [facility] 00:00:00 00:00:[address] 2020-02-26 2020-02-26 Outpatient CAMILO, [facility] [id number] [place] 00:00:00 00:00:[address] 2020-02-23 2020-02-24 Outpatient CAMILO, [facility] [id number] [place] 00:00:00 00:00:[address] 2020-02-22 2020-02-22 Outpatient VU [facility] [id number] [place] 00:00:00 00:00:00 MASHA [address] 2019-12-28 2019-12-28 Outpatient CAMILO, [facility] [id number] [place] 00:00:00 00:00:[address] 2019-10-29 2019-10-29 Outpatient CAMILO, [facility] [id number] [place] 00:00:00 00:00:[address] 2019-10-28 2019-10-28 Outpatient CAMILO, [facility] [id number] [place] 00:00:00 00:00:[address] 2019-09-28 2019-09-28 Outpatient CAMILO, [facility] [id number] [place] 00:00:00 00:00:[address] 2019-08-30 2019-08-30 Outpatient [facility] [id number] [place] 00:00:00 00:00:[address] 2019-08-29 2019-08-29 Outpatient SARAH PAGE [facility] [id number] [place] 00:00:00 00:00:[address] 2019-07-30 2019-07-30 Outpatient SARAH PAGE [facility] [id number] [place] 00:00:00 00:00:[address] Results Test Description Test Time Test Comments Results Result Comments Source Prothrombin time with INR 2020-08-14 00:00:00 Test Item Value Reference Range Interpretation Comme nts INR (test code = 61059-6) 3.10 [facility] MethodistUrinalysis, automated with [id number] 18:08:00 Test Item Value Reference Range Interpretation Comments Specific gravity, 1.024 1.005-1.030 urine (test code = 2965-2) pH, urine (test code 5.5 5.0-7.5 = 5803-2) Color, UA (test code Yellow Yellow = 5778-6) Appearance (test code Cloudy Clear A = 5767-9) WBC esterase, urine 2+ Negative A (test code = 5799-2) Protein, UA (test Trace Negative/Trace code = 19800-8) Glucose, urine (test Negative Negative code = 2349-9) Ketones, UA (test Negative Negative code = 2514-8) Occult blood, urine Trace Negative A (test code = 5794-3) Bilirubin, UA (test Negative Negative code = 5770-3) Urobilinogen, UA 0.2 mg/dL 0.2-1 (test code = 13851-0) Nitrite, UA (test Negative Negative code = 5802-4) Microscopic See below: Microscopic was examination (test indicated and was code = 81111-5) performed. GIANFRANCO (test code = GIANFRANCO) Performed at: [facility] [id number] Director: Ja Ramírez MD, Phone: [phone] Lab Interpretation Abnormal (test code = 77534-8) [facility] MethodistMicroscopic [id number] 18:08:00 Test Item Value Reference Range Interpretation Comments WBC, UA (test code = 11-30 0- 5 /hpf A 5821-4) RBC, UA (test code = 3-10 0- 2 /hpf A 30563-0) Epithelial cells (non >10 0- 10 /hpf A renal) (test code = 5787-7) Mucus, UA (test code = Present Not Estab. 8247-9) Bacteria, UA (test code = Many None seen/Few A 5769-5) GIANFRANCO (test code = GIANFRANCO) Performed at: [address] [id number] Director: Ja Ramírez MD, Phone: [phone] Lab Interpretation (test Abnormal code = 43197-0) [facility] MethodistMicroalbumin / creatinine urine [id number] 14:09:00 Test Item Value Reference Range Interpretation Comments Creatinine, 198.5 mg/dL Not Estab. urine, random (test code = 2161-8) Albumin, urine 23.4 ug/mL Not Estab. (test code = 84513-9) Microalbumin/cr 12 0- 29 mg/g creat eatinine ratio Normal: (test code = 0 - 29 9318-7) Moderately increased: 30 - 300 Severely increased: >300 Please note reference inter keesha change GIANFRANCO (test code Performed at: - = GIANFRANCO) [address] [id number] Director: Ja Ramírez MD, Phone: [phone] [facility] MethodistHemoglobin [id number] 11:09:00 Test Item Value Reference Range Interpretation Comments Hemoglobin A1C (test 5.7 % 4.8-5.6 H code = 4548-4) Prediabetes: 5.7 - 6.4 Diabetes: >6.4 Glycemic control for adults with diabetes: <7.0 GIANFRANCO (test code = GIANFRANCO) Performed at: [address] [place] [id number] Director: Ja Ramírez MD, Phone: [phone] Lab Interpretation Abnormal (test code = 76717-5) [facility] MethodistHepatic function [id number] 09:11:00 Test Item Value Reference Range Interpretation Comments Protein (test code = 7.3 g/dL 6-8.5 2885-2) Albumin, S (test code = 4.5 g/dL 3.7-4.7 175-7) Total bilirubin (test 0.6 mg/dL 0-1.2 code = 1974-) Bilirubin direct (test 0.12 mg/dL 0-0.4 code = 1967-7) Alkaline phosphatase 82 39- 117 IU/L (test code = 6768-6) AST (test code = 17 0- 40 IU/L 1920-8) ALT (test code = 12 0- 32 IU/L 1742-6) GIANFRANCO (test code = GIANFRANCO) Performed at: - [address] [id number] Director: Ja Ramírez MD, Phone: [phone] [facility], [id number] 09:11:00 Test Item Value Reference Range Interpretation Comments T4, free (test code 1.22 ng/dL 0.82-1.77 = 3024-7) GIANFRANCO (test code = Performed at: GIANFRANCO) [address] [id number] Director: Ja Ramírez MD, Phone: [phone] [facility] [id number] 09:11:00 Test Item Value Reference Range Interpretation Comments Hepatitis C Ab <0.1 0.0- 0.9 s/co (test code = ratio 91224-2) Negative: < 0.8 Indetermi aylin: 0.8 - 0.9 Positive: > 0.9 The CDC recomme nds that a positive HCV antibody result be followed up wit h a HCV Nucleic Aci d Amplification t est (207871). GIANFRANCO (test code = Performed at: GIANFRANCO) - [address] [id number] Director: Ja Ramírez MD, Phone: [phone] [facility] [id number] 08:14:00 Test Item Value Reference Range Interpretation Comments Glucose (test code = 98 mg/dL 65-99 2345-7) BUN (test code = 12 mg/dL 8-27 3094-0) Creatinine (test code = 0.65 mg/dL 0.57-1 2160-0) EGFR Non-Afr. [place] 87 mL/min/1.73 >59 (test code = 2775) EGFR 100 mL/min/1.73 >59 (test code = 2774) BUN/creatinine ratio 18 12-28 (test code = 3097-3) Sodium (test code = 138 mmol/L 207-670 8228-2) Potassium (test code = 4.4 mmol/L 3.5-5.2 2823-3) Chloride (test code = 102 mmol/L 96-106 2075-0) CO2 (test code = 23 mmol/L -8-9) Calcium (test code = 9.4 mg/dL 8.7-10.3 84689-2) GIANFRANCO (test code = GIANFRANCO) Performed at: [address] [place] [address] [id number] Director: Ja Ramírez MD, Phone: [phone] [facility] MethodistLipid [id number] 08:14:00 Test Item Value Reference Range Interpretation Comments Cholesterol (test code = 195 mg/dL 785-994 3993-3) Triglycerides (test code 93 mg/dL 0-149 = 2571-8) HDL cholesterol (test 64 mg/dL >39 code = 2085-9) VLDL cholesterol marlene 17 mg/dL 5-40 (test code = 15036-8) LDL Chol Calc (NIH) (test 114 mg/dL 0-99 H code = 66680-9) Non-HDL cholesterol (test 131 mg/dL 0-129 H code = 46944-0) GIANFRANCO (test code = GIANFRANCO) Performed at: [address] [place] [address] [id number] Director: Ja Ramírez MD, Phone: [phone] Lab Interpretation (test Abnormal code = 66593-7) [facility] MethodistThyroid stimulating [id number] 08:14:00 Test Item Value Reference Range Interpretation Comments TSH (test code = 5.930 0.450- 4.500 H 19127-5) uIU/mL GIANFRANCO (test code = GIANFRANCO) Performed at: [address] [place] [address] [id number] Director: Ja Ramírez MD, Phone: [phone] Lab Interpretation (test Abnormal code = 27980-7) [facility] with platelet and [id number] 06:10:00 Test Item Value Reference Range Interpretation Comments WBC (test code = 6.1 3.4- 10.8 x10E3/uL 6690-2) RBC (test code = 4.19 3.77- 5.28 x10E6/uL 789-8) HGB (test code = 13.5 g/dL 11.1-15.9 718-7) HCT (test code = 39.1 % 34-46.6 4544-3) MCV (test code = 93 fL 79-97 787-2) MCH (test code = 32.2 pg 26.6-33 785-6) MCHC (test code = 34.5 g/dL 31.5-35.7 786-4) RDW (test code = 12.3 % 11.7-15.4 788-0) Platelet count (test 286 150- 450 x10E3/uL code = 777-3) Neutrophils (test code 65 % Not Estab. = 770-8) Lymphocytes (test code 22 % Not Estab. = 736-9) Monocytes (test code = 9 % Not Estab. 5905-5) Eosinophils (test code 3 % Not Estab. = 713-8) Basophils (test code = 1 % Not Estab. 706-2) Neutrophils, absolute 3.9 1.4- 7.0 x10E3/uL (test code = 751-8) Lymphocytes, absolute 1.4 0.7- 3.1 x10E3/uL (test code = 731-0) Monocytes, absolute 0.6 0.1- 0.9 x10E3/uL (test code = 742-7) Eosinophils, absolute 0.2 0.0- 0.4 x10E3/uL (test code = 711-2) Basophils, absolute 0.0 0.0- 0.2 x10E3/uL (test code = 704-7) Immature granulocytes 0 % Not Estab. (test code = 79947-3) Immature grans (abs) 0.0 0.0- 0.1 x10E3/uL (test code = 63319-5) GIANFRANCO (test code = GIANFRANCO) Performed at: 01 - LabCoFormerly [facility] [id number] [place], [place] [id number] Director: Ja Ramírez MD, Phone: [phone] [facility] 12 [id number] 16:29:35 Test Item Value Reference Range Interpretation Comments Ventricular rate (test 54 code = 253) Atrial rate (test code 54 = 255) MA interval (test code 154 = 266) QRSD interval (test 82 code = 260) QT interval (test code 446 = 264) QTC interval (test code 422 = 265) P axis 1 (test code = 37 267) QRS axis 1 (test code = -17 268) T wave axis (test code 46 = 270) EKG impression (test Sinus bradycardia-Low code = 273) voltage QRS-Borderline ECG-In automated comparison with ECG of 01-JUL-2019 11:01,-No significant change was found- Francisco J Rader
[2020-08-30] MEDS ORDERED: propofoL 200 MG/20 ML VIAL IV ONE (07:40)
[2020-08-30] MEDS ORDERED: FENTANYL CITR 100 MCG/2 ML ONE (07:41)
[2020-08-30] MEDS ORDERED: LIDOCAINE 1% MPF 5 ML VIAL ONE (07:41)
[2020-08-30] MEDS ORDERED: MIDAZOLAM HCL 2 MG/2 ML INJ ONE (07:41)
[2020-08-30 07:49] LABS: Protime INR 1.1
[2020-08-30] MEDS ORDERED: Ringers Lactate 1,000 ML IV ONE (07:54)
[2020-08-30] MEDS ORDERED: CEFAZOLIN/SWI 1gm 1 GM/10 ML SYR ONE (07:54)
[2020-08-30] MEDS ORDERED: ROCURONIUM 50 MG/5 ML VIAL IV ONE (08:47)
[2020-08-30] MEDS ORDERED: dexAMETHasone 10 MG/ML VIAL ONE (08:58)
[2020-08-30] MEDS ORDERED: KETOROLAC 30 MG/ML INJ ONE (08:58)
[2020-08-30] MEDS ORDERED: ONDANSETRON 4 MG/2 ML VIAL ONE ×2 (09:02→09:52)
[2020-08-30] MEDS ORDERED: EPHEDRINE SULF 50 MG/ML VIAL ONE (09:03)
[2020-08-30] MEDS ORDERED: NS 0.9% VIAL 10 ML ONE (09:03)
[2020-08-30] MEDS ORDERED: NEOSTIGMINE 1 MG/ML -5 ML ONE (09:14)
[2020-08-30] MEDS ORDERED: GLYCOPYRROLATE 0.2 MG/ML SYR ONE ×2 (09:14)
--- NOTE | 2020-08-30 09:34 | P.BOP ---
Preoperative diagnosis: incarcerated umbilical hernia Postoperative diagnosis: same Primary procedure: Open repair of incarcerated umbilical hernia Snout Puller: CHARLY SOLIS (MEAT CURER) Estimated blood loss: <10cc Specimen: sac Anesthesia: General Complications: None Transferred to: Recovery Room Condition: Good
[2020-08-30] MEDS ORDERED: MORPHINE 4 MG/ML SYR ONE (09:52)
--- NOTE | 2020-08-30 11:07 | OP ---
Date of Procedure: 08/30/2020 Surgeon: Soren Quigley MD Technical System Analyst: Pamela Vernon. Preoperative Diagnosis: Incarcerated umbilical hernia. Postoperative Diagnosis: Incarcerated umbilical hernia. Procedures: Open repair of incarcerated umbilical hernia. Estimated Blood Loss: Less than 10 mL. Specimen: Hernia sac. Anesthesia: General plus local. Indications For Procedure: This is a case of a 75-year-old patient comes to us with incarcerated umb ilical hernia tender. Benefits, alternatives, and risks of repair fully explained which include, but not limited to infection, bleeding, damage to adjacent structures, anesthesia complication, recurren ce, VA, and even . She also understands this may not relieve any symptoms. She might need more than one surgical intervention. She understood, signed a consent. Procedure In Detail: The patient was brought to the operating room and placed in supine position. A nesthesia was done without complication. Abdominal area was prepped and draped in usual sterile [facility] ion. A curvilinear incision was made in the infraumbilical region after injecting local anesthetic a nd after also doing a time-out. Incision was carried down to fascia. We noticed the hernia sac, car efully removed the hernia skin from the hernia sac, opened the hernia sac noticing incarcerated oment um. After fully visualized, we proceeded then to ligate the omentum between Maria T clamps and suture ligated that. Then after that fully inspecting to make sure there was no bleeding. Then, we retract down into the abdominal cavity. Hernia sac was removed. Fascial edges were cleaned. We proceeded to close the fascial edges by doing [id number] fashion #1 Prolene multiple times. The patient t olerated the procedure well. Zero chromic was used to close subcutaneous tissue in a subcuticular fa shion with sterile dressings on top. The patient tolerated the procedure well. The patient was sent to Recovery in stable condition. Discharge Summary: Diagnosis: Incarcerated umbilical hernia. Procedure: Open repair of incarcerated umbilical hernia. Disposition: Home. Activity: As tolerated. No heavy lifting. Plan: Follow up in my office in 1 week. Call for appointment [phone]. Keep area dry for 48 hours, then may shower. Keep Steri-Strip intact. Medications: See orders. HM/MODL Voice ID: [id number] Report ID: [id number]
[2020-08-30 11:34] VITALS: BP 154/92; TEMP 97; O2SAT 100
--- NOTE | 2020-08-31 06:07 | EKG ---
Test Date: 2020-08-30 Test Time: 08:11:33 Shipping Receiving Clerk: DINA MEASUREMENT RESULTS: Intervals: Rate: 53 VT: 152 QRSD: 80 QT: 466 QTc: 437 [place]: P: 76 VT: 152 QRS: 3 T: 82 INTERPRETIVE STATEMENTS: Sinus bradycardia Nonspecific T wave abnormality Abnormal ECG Compared to ECG 08/24/2014 12:04:45 T-wave abnormality now present Ventricular premature complex(es) no longer present Myocardial infarct finding no longer present Electronically Signed On 08-31-20 06:03:15 ACCOUNT LEADER by Benson Dupont
== END 2020-08-30 11:15 | disposition home or self-care (01) ==
LOC: OR 07:06
PROVIDERS: ATTEND Surgery
PROC: 0WQF0ZZ Repair Abdominal Wall, Open Approach (ICD-10-PCS; principal; 2020-08-30 08:00)
DX: K42.0 Umbilical hernia with obstruction, without gangrene (principal); I10 Essential (primary) hypertension; I48.91 Unspecified atrial fibrillation; E07.9 Disorder of thyroid, unspecified; Z20.828 Contact with and (suspected) exposure to other viral communicable diseases; Z79.01 Long term (current) use of anticoagulants; Z91.048 Other nonmedicinal substance allergy status; Z95.1 Presence of aortocoronary bypass graft; Z95.5 Presence of coronary angioplasty implant and graft; Z87.891 Personal history of nicotine dependence; Z82.49 Family history of ischemic heart disease and other diseases of the circulatory system
CPT/HCPCS: 93005; 85025; 80048; 36415 ×2; 85610; 88302; 85730; 71046; 49587; U0002; J2704; J3010; J1100; J2710; J0690; J7120; J2405 ×2; J2250

== ENCOUNTER 2025-01-07 12:07 | Emergency (ER) | payer OTHER, BC ==
--- NOTE | 2025-01-07 13:12 | RAD REPORT ---
EXAMINATION: Thorax Wo Con CLINICAL INDICATION: Female, 79 years old. BLUNT CHEST TRAUMA TECHNIQUE: Routine CT scan of the chest without intravenous contrast. One or more of the following do se reduction techniques were used: Automated exposure control, adjustment of the mA and/or kV according to patient size, and/or iterative reconstruction. Unless otherwise specified, incidental fi ndings do not require dedicated imaging follow-up. [id number]. COMPARISON: No prior exam. FINDINGS: LOWER NECK: Visualized thyroid gland and soft tissues are normal. LUNGS AND AIRWAYS: Airways are clear. No evidence of airspace or interstitial process.No suspicious a nd/or stable pulmonary nodules. PLEURA: Trace bilateral effusions. No pneumothorax. MEDIASTINUM AND LYMPH NODES: No mediastinal mass or fluid collection. Normal size mediastinal, hilar, and axillary lymph nodes. Mild distal esophageal thickening with small hiatal hernia. THORACIC AORTA: No thoracic aortic aneurysm. PULMONARY ARTERIES: Caliber is within normal limits. HEART: Normal heart size. Severe coronary artery calcifications.No significant pericardial effusion. Pacemaker. OSSEOUS STRUCTURES AND CHEST WALL: Multilevel degenerative changes. No acute fracture. Remote right r ib fractures. Sternotomy. UPPER ABDOMEN: No acute abnormalities. IMPRESSION: No evidence of significant acute trauma to the chest. Trace nonspecific pleural effusions.
--- NOTE | 2025-01-07 13:24 | EDPHYS ---
Physician Documentation [facility] Name: Sara Guevara Age: 79 yrs Sex: Female : 1945 Arrival Date: 01/07/2025 Time: 12:07 Bed 9 Private MD: ED Physician Artem Cobb HPI: 01/07 13:20 This 79 yrs old Female presents to ER via Ambulatory with complaints of Back Pain, rn Flank Pain, Fall Injury. 13:20 The patient or guardian reports chest pain that is located primarily in the left rn lateral posterior chest. The pain does not radiate. The chest pain is described as aching. Severity of pain: At its worst the pain was mild in the emergency department the pain is unchanged. Patient reports fall from standing 1 week ago. Struck left posterior thorax on edge of furniture. Denies pain with breathing but reports pain with movement and palpation. Takes Coumadin. No other traumatic findings. Reports not better after a week so came in for imaging to make sure she did not break a rib.. Historical: - Allergies: 12:27 No Known Allergies; ap3 - Home Meds: 12:27 Coumadin Oral [Active]; ap3 - PMHx: 12:27 Atrial fibrillation; ap3 - Immunization history:: Client reports receiving the 2nd dose of the Covid vaccine, Flu vaccine is not up to date. - Infectious Disease History:: Denies. - Social history:: Smoking status: Patient denies any tobacco usage or history of. - Family history:: not pertinent. - Hospitalizations: : No recent hospitalization is reported. ROS: 13:20 Constitutional: Negative for fever, chills, and weight loss, Cardiovascular: Positive rn for left posterior lateral chest wall pain and bruising Respiratory: Negative for shortness of breath, cough, wheezing, and pleuritic chest pain, Abdomen/GI: Negative for abdominal pain, nausea, vomiting, diarrhea, and constipation, MS/Extremity: Negative for injury and deformity, Neuro: Negative for headache, weakness, numbness, tingling, and seizure, Exam: 13:20 Constitutional: This is a well developed, well nourished patient who is awake, alert, rn and in no acute distress. Chest/axilla: Left posterior lateral chest wall tenderness with ecchymosis along ribs. No crepitus. Ecchymosis along and under bra strap. Respiratory: No increased work of breathing, no retractions or nasal flaring. Abdomen/GI: Soft, non-tender MS/ Extremity: Pulses equal, no cyanosis. Neurovascular intact. Full, normal range of motion. Equal circumference. Vital Signs: 12:24 BP 164 / 91; Pulse 118; Resp 18; Temp 98.4; Pulse Ox 98% on R/A; Weight 61.23 kg; ap3 MDM: 12:21 Medical Screening Exam initiated rn 13:22 Differential diagnosis: Blunt Chest Trauma Chest Wall Contusion Pulmonary Contusion Rib rn Fracture. Data reviewed: vital signs, nurses notes, radiologic studies, CT scan, and as a result, I will discharge patient. Counseling: I had a detailed discussion with the patient and/or guardian regarding the historical points, exam findings, and any diagnostic results supporting the discharge/admit diagnosis, radiology results, the need for outpatient follow up, to return to the emergency department if symptoms worsen or persist or if there are any questions or concerns that arise at home. Special discussion: I discussed with the patient/guardian in detail that at this point there is no indication for admission to the hospital. It is understood, however, that if the symptoms persist or worsen the patient needs to return immediately for re-evaluation. ED course: CT chest without acute fracture or pneumothorax. I have personally reviewed all of the results, including but not limited to imaging deemed necessary to safely discharge this patient at this time. All results given to and printed out for patient. I personally went over all the results with the patient and answered all questions. Patient will follow-up with PCP and or specialist as discussed. Return precautions given and understood.. 01/07 12:34 Order name: CT Chest Wo Con; Complete Time: 13:19 rn Administered Medications: No medications were administered Disposition Summary: 01/07/25 13:24 Discharge Ordered Notes: Location: Home rn Problem: an ongoing problem rn Symptoms: have improved rn Condition: Stable rn Diagnosis - Rib contusion rn Followup: rn - With: Private Physician - When: As needed - Reason: Recheck today's complaints, Re-evaluation by your physician Discharge Instructions: - Discharge Summary Sheet rn - Rib Contusion rn Forms: - Medication Reconciliation Form rn - Antibiotic rn float - Prescription Opioid Use rn - Patient Portal Instructions rn - Leadership Thank You Letter rn Prescriptions: - Tylenol-Codeine #3 300mg-30mg Oral tablet - take 1 tablet ORAL route every 8-10 hours As needed; 14 tablet; Refills: 0, rn Product Selection Permitted Signatures: Dispatcher [employer] Artem Solorzano MD MD rn Prokisch, Amanda, RN RN ap3 Corrections: (The following items were deleted from the chart) 12:34 12:34 Thorax Wo Con+CT.RAD.BRZ ordered. CEE MIKE
--- NOTE | 2025-01-07 13:24 | ER ---
Nurse's Notes [facility] Name: Sara Guevara Age: 79 yrs Sex: Female : 1945 Arrival Date: 01/07/2025 Time: 12:07 Bed 9 Private MD: Diagnosis: Rib contusion Presentation: 01/07 12:24 Chief complaint: Patient states: she fell last week and has a bruise on her right back ap3 that has been hurting her. patient reports she would like an x-ray to ensure there is nothing broken. patient denies painful breathing. Coronavirus screen: At this time, the client does not indicate any symptoms associated with coronavirus-19. Ebola Screen: No symptoms or risks identified at this time. Initial Sepsis Screen: Does the patient meet any 2 criteria? HR > 90 bpm. Does the patient have a suspected source of infection? No. Patient's initial sepsis screen is negative. Risk Assessment: Do you want to hurt yourself or someone else? Patient reports no desire to harm self or others. Onset of symptoms was December 31, 2024. Transition of care: patient was not received from another setting of care. 12:24 Method Of Arrival: Ambulatory ap3 12:24 Acuity: JERSON 3 ap3 Triage Assessment: 12:28 General: Appears in no apparent distress. Behavior is calm, cooperative, appropriate ap3 for age. Pain: Complains of pain in left subscapular area. Neuro: Level of Consciousness is awake, alert, obeys commands, Oriented to person, place, time, situation, Appropriate for age Gait is steady, Speech is normal. Cardiovascular: Rhythm is by radial palpation. Respiratory: Airway is patent Respiratory effort is even, unlabored, Respiratory pattern is regular, symmetrical. Derm: Bruising that is dark purple, brown, green, yellow, on left subscapular area. Musculoskeletal: Range of motion: intact in all extremities. Historical: - Allergies: 12:27 No Known Allergies; ap3 - Home Meds: 12:27 Coumadin Oral [Active]; ap3 - PMHx: 12:27 Atrial fibrillation; ap3 - Immunization history:: Client reports receiving the 2nd dose of the Covid vaccine, Flu vaccine is not up to date. - Infectious Disease History:: Denies. - Social history:: Smoking status: Patient denies any tobacco usage or history of. - Family history:: not pertinent. - Hospitalizations: : No recent hospitalization is reported. Screenin:29 [facility] ED Fall Risk Assessment (Adult) History of falling in the last 3 months, ap3 including since admission Yes- single mechanical fall (1 pt) Confusion or Disorientation No (0 pts) Intoxicated or Sedated No (0 pts) Impaired Gait No (0 pts) Mobility Assist Device Used No (0 pt) Altered Elimination No (0 pt) Score/Fall Risk Level 0 - 2 = Low Risk Oriented to surroundings, Maintained a safe environment, Educated pt \T\ family on fall prevention, incl call for assistance when getting out of bed, Assessed \T\ reinforced patient's understanding of fall precautions, Hourly rounding (assess needs \T\ fall precautionary measures) done, Used ambulatory aids as needed (educated on \T\ assisted with). Abuse screen: Denies threats or abuse. Nutritional screening: No deficits noted. Tuberculosis screening: No symptoms or risk factors identified. Assessment: 12:43 General: Appears in no apparent distress. comfortable, Behavior is calm, cooperative, ld1 appropriate for age. Pain: Complains of pain in back and left subscapular area Pain does not radiate. Pain currently is 7 out of 10 on a pain scale. Quality of pain is described as throbbing, Pain began 2-3 days ago. Is continuous. Neuro: Level of Consciousness is awake, alert, obeys commands, Oriented to person, place, time, situation. Cardiovascular: Capillary refill < 3 seconds Patient's skin is warm and dry. Respiratory: Airway is patent Respiratory effort is even, unlabored. GI: Abdomen is flat, non-distended. : No signs and/or symptoms were reported regarding the genitourinary system. EENT: No signs and/or symptoms were reported regarding the EENT system. Derm: No signs and/or symptoms reported regarding the dermatologic system. Musculoskeletal: No signs and/or symptoms reported regarding the musculoskeletal system. Vital Signs: 12:24 BP 164 / 91; Pulse 118; Resp 18; Temp 98.4; Pulse Ox 98% on R/A; Weight 61.23 kg; ap3 ED Course: 12:19 Patient arrived in ED. cj3 12:20 Artem Cobb MD is Attending Physician. rn 12:27 Triage completed. ap3 12:30 Arm band placed on right wrist. ap3 12:43 Cassandra Alexandre, RN is Primary Nurse. ld1 12:43 Patient has correct armband on for positive identification. Placed in gown. Bed in low ld1 position. Call light in reach. Side rails up X2. Pulse ox on. NIBP on. Door closed. Noise minimized. Warm blanket given. 12:43 No provider procedures requiring assistance completed. ld1 12:52 CT Chest Wo Con In Process Unspecified. EDMS 13:35 Patient did not have IV access during this emergency room visit. ld1 Administered Medications: No medications were administered Medication: 12:43 VIS not applicable for this client. ld1 Outcome: 13:24 Discharge ordered by . rn 13:35 Discharged to home ambulatory, with family, ld1 13:35 Condition: good 13:35 Discharge instructions given to patient, family, Instructed on discharge instructions, follow up and referral plans. Demonstrated understanding of instructions, follow-up care, 13:35 Patient left the ED. ld1 Signatures: Dispatcher [employer] EDMI Artem Cobb MD MD rn Prokisch, Amanda RN RN ap3 Cassandra Alexandre, RN RN ld1 Kayla Gallo 3
[2025-01-07 14:04] VITALS: BP 164/91; TEMP 98.4; O2SAT 98
== END 2025-01-07 13:35 | disposition home or self-care (01) ==
LOC: ER 12:07
DX: S20.222A Contusion of left back wall of thorax, initial encounter (principal); W18.30XA Fall on same level, unspecified, initial encounter; I48.91 Unspecified atrial fibrillation; Z79.01 Long term (current) use of anticoagulants
CPT/HCPCS: 71250; 99283

== ENCOUNTER 2025-01-15 14:59 | Emergency (ER) | payer OTHER, BC ==
--- NOTE | 2025-01-15 15:42 | ER ---
Nurse's Notes [facility] Name: Sara Guevara Age: 79 yrs Sex: Female : 1945 Arrival Date: 01/15/2025 Time: 14:59 Bed 13 Private MD: Diagnosis: Muscular back pain Presentation: 01/15 15:27 Chief complaint: Patient states: was here a week ago for back pain from a fall, still iw having pain , she is out of her meds. Coronavirus screen: At this time, the client does not indicate any symptoms associated with coronavirus-19. Ebola Screen: No symptoms or risks identified at this time. Initial Sepsis Screen: Does the patient meet any 2 criteria? No. Patient's initial sepsis screen is negative. Does the patient have a suspected source of infection? No. Patient's initial sepsis screen is negative. Risk Assessment: Do you want to hurt yourself or someone else? Patient reports no desire to harm self or others. 15:27 Method Of Arrival: Ambulatory iw 15:28 Onset of symptoms was January 05, 2025. iw 15:28 Acuity: JERSON 4 iw Historical: - Allergies: 15:29 No Known Allergies; iw - PMHx: 15:28 Atrial fibrillation; iw - Immunization history:: Adult Immunizations unknown. - Infectious Disease History:: Denies. - Social history:: Smoking status: Patient denies any tobacco usage or history of. Screenin:37 [facility] ED Fall Risk Assessment (Adult) History of falling in the last 3 months, kj2 including since admission No falls in past 3 months (0 pts) Confusion or Disorientation No (0 pts) Intoxicated or Sedated No (0 pts) Impaired Gait No (0 pts) Mobility Assist Device Used No (0 pt) Altered Elimination No (0 pt) Score/Fall Risk Level 0 - 2 = Low Risk Maintained a safe environment, Hourly rounding (assess needs \T\ fall precautionary measures) done. Abuse screen: Denies threats or abuse. Denies injuries from another. Nutritional screening: No deficits noted. Tuberculosis screening: No symptoms or risk factors identified. Assessment: 15:35 General: Appears in no apparent distress. Behavior is cooperative. Pain: Complains of kj2 pain in back Pain currently is 6 out of 10 on a pain scale. Neuro: Level of Consciousness is awake, alert, obeys commands, Oriented to person, place, situation. Cardiovascular: Patient's skin is warm and dry. Respiratory: Airway is patent Respiratory effort is even, unlabored. GI: No signs and/or symptoms were reported involving the gastrointestinal system. : No signs and/or symptoms were reported regarding the genitourinary system. 15:58 Reassessment: Patient appears in no apparent distress at this time. Patient and/or kj2 family updated on plan of care and expected duration. Pain level reassessed. Patient is alert, oriented x 3, equal unlabored respirations, skin warm/dry/pink. Vital Signs: 15:29 BP 166 / 71; Pulse 83; Resp 16; Temp 98.4; Pulse Ox 97% on R/A; Weight 59.87 kg; Height iw 5 ft. 0 in. ; 15:46 BP 155 / 72; Pulse 70; Resp 18; Temp 98; Pulse Ox 100% on R/A; kj2 15:29 Body Mass Index 25.78 (59.87 kg, 152.4 cm) ED Course: 15:02 Patient arrived in ED. im 15:02 Kunal Goins MD is Attending Physician. sp3 15:28 Triage completed. iw 15:30 Arm band placed on. iw 15:35 Ingrid Carlisle RN is Primary Nurse. kj2 15:38 Patient has correct armband on for positive identification. Bed in low position. Call kj2 light in reach. Adult w/ patient. Provided Education on: call light. 15:39 No provider procedures requiring assistance completed. kj2 15:47 Patient did not have IV access during this emergency room visit. kj2 Administered Medications: No medications were administered Medication: 15:38 VIS not applicable for this client. kj2 Outcome: 15:41 Discharge ordered by . sp3 15:46 Discharged to home ambulatory, with family, kj2 15:46 Condition: stable 15:46 Discharge instructions given to patient, family, Instructed on discharge instructions, follow up and referral plans. Demonstrated understanding of instructions, follow-up care, 15:58 Patient left the ED. kj2 Signatures: Lissett Quan RN RN Kunal Goins MD MD sp3 Vaishali Ross im Ingrid Carlisle RN RN kj2 Corrections: (The following items were deleted from the chart) 15:28 15:27 Chief complaint: Patient states: was here a week ago for back pain from a fall, iw still having pain iw 15:30 15:29 Pulse 83bpm; Resp 16bpm; Pulse Ox 97% RA; Temp 98.4F; iw iw
--- NOTE | 2025-01-15 15:42 | EDPHYS ---
Physician Documentation [facility] Name: Sara Guevara Age: 79 yrs Sex: Female : 1945 Arrival Date: 01/15/2025 Time: 14:59 Bed 13 Private MD: ED Physician Kunal Goins HPI: 01/15 15:38 This 79 yrs old Female presents to ER via Ambulatory with complaints of Medication sp3 Refill. 15:38 79-year-old female with paroxysmal atrial fibrillation presents with mild muscular pain sp3 after moving into her new apartment. In the past she has taken Tylenol with codeine and she is here requesting refill for that. She is ambulatory no acute distress. She denies any fall, new injury, chest pain, shortness of breath, headache, neck pain, neurological symptoms or any other signs or symptoms on ROS at this time.. Historical: - Allergies: 15:29 No Known Allergies; iw - PMHx: 15:28 Atrial fibrillation; iw - Immunization history:: Adult Immunizations unknown. - Infectious Disease History:: Denies. - Social history:: Smoking status: Patient denies any tobacco usage or history of. ROS: 15:38 Constitutional: Negative for fever, chills, and weight loss, Eyes: Negative for injury, sp3 pain, redness, and discharge, ENT: Negative for injury, pain, and discharge, Neck: Negative for injury, pain, and swelling, Cardiovascular: Negative for chest pain, palpitations, and edema, Respiratory: Negative for shortness of breath, cough, wheezing, and pleuritic chest pain, Abdomen/GI: Negative for abdominal pain, nausea, vomiting, diarrhea, and constipation, : Negative for injury, bleeding, discharge, and swelling, MS/Extremity: Negative for injury and deformity, Skin: Negative for injury, rash, and discoloration, Neuro: Negative for headache, weakness, numbness, tingling, and seizure, Psych: Negative for depression, anxiety, suicide ideation, homicidal ideation, and hallucinations, Allergy/Immunology: Negative for hives, rash, and allergies, Endocrine: Negative for neck swelling, polydipsia, polyuria, polyphagia, and marked weight changes, 15:38 All other systems are negative, Exam: 15:39 Constitutional: This is a well developed, well nourished patient who is awake, alert, sp3 and in no acute distress. Head/Face: Normocephalic, atraumatic. Neck: Trachea midline, no thyromegaly or masses palpated, and no cervical lymphadenopathy. Supple, full range of motion without nuchal rigidity, or vertebral point tenderness. No Meningismus. Chest/axilla: Normal chest wall appearance and motion. Nontender with no deformity. No lesions are appreciated. Cardiovascular: Regular rate and rhythm with a normal S1 and S2. No gallops, murmurs, or rubs. Normal PMI, no JVD. No pulse deficits. Respiratory: Lungs have equal breath sounds bilaterally, clear to auscultation and percussion. No rales, rhonchi or wheezes noted. No increased work of breathing, no retractions or nasal flaring. Abdomen/GI: Soft, non-tender, with normal bowel sounds. No distension or tympany. No guarding or rebound. No evidence of tenderness throughout. Skin: Warm, dry with normal turgor. Normal color with no rashes, no lesions, and no evidence of cellulitis. MS/ Extremity: Pulses equal, no cyanosis. Neurovascular intact. Full, normal range of motion. Neuro: Awake and alert, GCS 15, oriented to person, place, time, and situation. Cranial nerves II-XII grossly intact. Motor strength 5/5 in all extremities. Sensory grossly intact. Cerebellar exam normal. Normal gait. Psych: Awake, alert, with orientation to person, place and time. Behavior, mood, and affect are within normal limits. 15:39 Back: Mild muscular pain bilaterally lower back. No pain on bony palpation. Vital signs normal. Abdomen benign. No pulsating mass noted., Vital Signs: 15:29 BP 166 / 71; Pulse 83; Resp 16; Temp 98.4; Pulse Ox 97% on R/A; Weight 59.87 kg; Height iw 5 ft. 0 in. ; 15:46 BP 155 / 72; Pulse 70; Resp 18; Temp 98; Pulse Ox 100% on R/A; kj2 15:29 Body Mass Index 25.78 (59.87 kg, 152.4 cm) iw MDM: 15:31 Medical Screening Exam initiated sp3 15:40 Data reviewed: vital signs, nurses notes. ED course: Patient with very mild muscular sp3 pain of the lower back. I am not suspicious of significant trauma, aortic pathology, other vascular pathology, or any other critical process at this time. Will refill Tylenol with codeine and discharged her to PCP follow-up.. Administered Medications: No medications were administered Disposition Summary: 01/15/25 15:41 Discharge Ordered Notes: Location: Home sp3 Condition: Stable sp3 Diagnosis - Muscular back pain sp3 Followup: sp3 - With: Private Physician - When: Upon discharge from the Emergency Department - Reason: Continuance of care Discharge Instructions: - Discharge Summary Sheet sp3 - Acute Back Pain, Adult sp3 Forms: - Medication Reconciliation Form sp3 - Antibiotic Education sp3 - Prescription Opioid Use sp3 - Patient Portal Instructions sp3 - Leadership Thank You Letter sp3 Prescriptions: - Tylenol-Codeine #3 300mg-30mg Oral tablet - take 1 tablet ORAL route every 4 hours As needed; 16 tablet; Refills: 0, sp3 Product Selection Permitted Signatures: Lissett Quan RN RN iw Kunal Goins MD MD sp3 Ingrid Carlisle RN RN kj2
[2025-01-15 16:05] VITALS: BP 155/72; TEMP 98; O2SAT 100
== END 2025-01-15 15:58 | disposition home or self-care (01) ==
LOC: ER 14:59
DX: M54.9 Dorsalgia, unspecified (principal); I48.91 Unspecified atrial fibrillation
CPT/HCPCS: 99283